=== PATIENT | male | born 1950 | race Caucasian/White ===

== ENCOUNTER 2019-02-06 09:40 | Day surgery (SDC) | payer MEDICARE, OTHER ==
[~2019-02-06] VITALS: Ht 175.3 cm; Wt 98.5 kg
[~2019-02-06 09:40] MED LIST: ? ANTIBIOTIC; DAYQUIL; DOXY100 PO; MAXIDE; TYLENOL; VERA240ERB
[2019-02-06] MEDS ORDERED: ATOR40TA PO (10:52)
[2019-02-06] MEDS ORDERED: Desyrel150 MG PO (10:52)
[2019-02-06] MEDS ORDERED: VENL75ER PO (10:53)
[2019-02-06] MEDS ORDERED: TAMS.4ER PO (10:53)
[2019-02-06] MEDS ORDERED: METF500 PO (10:55)
[2019-02-06] MEDS ORDERED: Diovan320 MG PO (10:56)
== END 2019-02-06 12:45 | disposition home or self-care (01) ==
LOC: ORSCSDS 09:40
PROVIDERS: Surgery
PROC: 0DBP8ZX Excision of Rectum, Via Natural or Artificial Opening Endoscopic, Diagnostic (ICD-10-PCS; principal; 2019-02-06 11:30)
PROC: 0DBH8ZX Excision of Cecum, Via Natural or Artificial Opening Endoscopic, Diagnostic (ICD-10-PCS; principal; 2019-02-06 11:30)
DX: R19.5 Other fecal abnormalities (principal); D12.0 Benign neoplasm of cecum; K62.1 Rectal polyp; K57.30 Diverticulosis of large intestine without perforation or abscess without bleeding; E11.9 Type 2 diabetes mellitus without complications; I10 Essential (primary) hypertension; E78.5 Hyperlipidemia, unspecified; F41.8 Other specified anxiety disorders; E66.9 Obesity, unspecified; Z68.32 Body mass index [BMI] 32.0-32.9, adult; Z79.899 Other long term (current) drug therapy
CPT/HCPCS: 82947; 88305; J2704; J7120

== ENCOUNTER 2019-10-05 08:55 | Emergency (ER) | payer MEDICARE, OTHER ==
[~2019-10-05] VITALS: Ht 175.3 cm; Wt 101.2 kg
[~2019-10-05 08:55] MED LIST changes: +ATOR40TA PO; +Desyrel150 MG PO; +Diovan320 MG PO; +METF500 PO; +TAMS.4ER PO; +VENL75ER PO
[2019-10-05] MEDS ORDERED: TIMO10T (09:09)
[2019-10-05] MEDS ORDERED: LATANOPROST2.5 M1 OP (09:09)
[2019-10-05] MEDS ORDERED: IBUP600 PO (09:18)
[2019-10-05] MEDS ORDERED: Amoxicillin875 MG PO (09:18)
== END 2019-10-05 09:31 | disposition home or self-care (01) ==
LOC: ER 08:55
DX: K02.9 Dental caries, unspecified (principal); I10 Essential (primary) hypertension; E11.9 Type 2 diabetes mellitus without complications; Z88.5 Allergy status to narcotic agent; Z79.899 Other long term (current) drug therapy; Z79.84 Long term (current) use of oral hypoglycemic drugs; Z87.891 Personal history of nicotine dependence
CPT/HCPCS: 99282